=== PATIENT | female | born 1950 | race American Indian/Alaskan Native ===

== ENCOUNTER 2020-06-27 07:05 | Day surgery (SDC) | payer OTHER ==
[~2020-06-27] VITALS: Ht 162.6 cm; Wt 96.2 kg
[~2020-06-27 07:05] MED LIST: ATOR20 PO; BIOTIN5000 MCG PO; CEPH500 PO; DIOVAN PO; EUTHYROX125 MCG PO; GABA300; HCTZ PO; LEVSOD112; LEVSOD112 PO; METPRE4DP PO; NABU750; OLMESARTAN MEDO20 MG PO; Percocet 5-3251 EACH PO; Robaxin500 MG PO; VALS80 PO
--- NOTE | 2020-06-27 07:46 | NUR ---
Ambulatory in Day Surgery Patient states colon prep results clear. History, Chart, Medications and Allergies reviewed before start of procedure. Lungs clear T/O to Auscultation. Patient confirms NPO status and agrees with scheduled surgery. Pre-Op teaching done. Pt verbalizes understanding.
--- NOTE | 2020-06-27 08:09 | NUR ---
06/27/20 0809 Kalee Cueva HISTORY,CHART, MEDICATIONS AND ALLERGIES REVIEWED BEFORE START OF PROCEDURE. PATIENT CONFIRMS NPO STATUS AND AGREES WITH SCHEDULED PROCEDURE. 3-LEAD EKG REVIEWED WITH PHYSICIAN PRIOR TO START OF PROCEDURE. MONITOR INTACT WITH CONTINUOUS PULSE OXIMETRY AND INTERMITTENT BP. SUPPLEMENTAL O2 TO BE TITRATED THROUGHOUT PROCEDURE TO MAINTAIN O2 SATURATION ABOVE 90%. PATIENT DETERMINED TO BE ASA APPROPRIATE FOR MODERATE SEDATION PRIOR TO START OF PROCEDURE BY .
--- NOTE | 2020-06-27 08:54 | NUR ---
PATIENT DROWSY BUT ORIENTED. DR. RANDOLPH SPOKE WITH PATIENT ABOUT SCOPE RESULTS. FOLLOW UP IN THREE YEARS, FOLLOW UP APPOINTMENT NOT NEEDED.
--- NOTE | 2020-06-27 09:13 | NUR ---
RESUMED CARE OF PATIENT FROM TIO HUANG RN. PATIENT APPEARS ASLEEP WITH EYES CLOSED, RESP. EVEN AND UNLABORED. BIOXC 94% RA.
--- NOTE | 2020-06-27 09:35 | NUR ---
Discharge instructions reviewed with patient. Patient verbalizes understanding. Copy given to patient to take home. Patient States Post-Procedure ride home has been arranged with her .
--- NOTE | 2020-06-27 09:50 | NUR ---
0945- UP TO DRESS WITH A STEADY GAIT. TOLERATING PO FLUID. VSS. NO C/O.
== END 2020-06-27 09:50 | disposition home or self-care (01) ==
LOC: ORSCMMR 07:05 → ORD 08:00 → ORSCMMR 08:00
PROVIDERS: Internal Medicine Gastroenterology
PROC: 0DBK8ZX Excision of Ascending Colon, Via Natural or Artificial Opening Endoscopic, Diagnostic (ICD-10-PCS; principal; 2020-06-27 08:00)
PROC: 0DBC8ZX Excision of Ileocecal Valve, Via Natural or Artificial Opening Endoscopic, Diagnostic (ICD-10-PCS; principal; 2020-06-27 08:00)
PROC: 0DBL8ZX Excision of Transverse Colon, Via Natural or Artificial Opening Endoscopic, Diagnostic (ICD-10-PCS; principal; 2020-06-27 08:00)
PROC: 0DBH8ZX Excision of Cecum, Via Natural or Artificial Opening Endoscopic, Diagnostic (ICD-10-PCS; principal; 2020-06-27 08:00)
DX: Z12.11 Encounter for screening for malignant neoplasm of colon (principal); Z86.010 Personal history of colon polyps; D12.2 Benign neoplasm of ascending colon; D12.3 Benign neoplasm of transverse colon; D12.0 Benign neoplasm of cecum; K57.30 Diverticulosis of large intestine without perforation or abscess without bleeding; I10 Essential (primary) hypertension; E03.9 Hypothyroidism, unspecified; G47.33 Obstructive sleep apnea (adult) (pediatric); Z79.899 Other long term (current) drug therapy
CPT/HCPCS: 88305; J2250; J3010; J7120

== ENCOUNTER 2023-08-03 06:26 | Day surgery (SDC) | payer OTHER ==
[~2023-08-03] VITALS: Ht 162.6 cm; Wt 107.5 kg
[~2023-08-03 06:26] MED LIST changes: +Lactated Ringer's 1,000 ML IV SCH
[2023-08-03 06:50] VITALS: BP 154/72
[2023-08-03] MEDS ORDERED: FURO40 PO (07:03)
[2023-08-03] MEDS ORDERED: propofoL 50 ML IV ONE (07:24)
--- NOTE | 2023-08-03 07:34 | NUR ---
Patient confirms NPO status and agrees with scheduled surgery. Ambulatory in Day SurgeryPre-Op teaching done. Pt verbalizes understanding. History, Chart, Medications and Allergies reviewed before start of procedure.Patient States Post-Procedure ride home has been arranged.
--- NOTE | 2023-08-03 07:38 | NUR ---
08/03/23 0738 Esthela Jewell MONITOR INTACT WITH CONTINUOUS PULSE OXIMETRY, CONTINUOUS END TITAL CO2, AND INTERMITTENT BLOOD PRESSURE. 3-LEAD EKG REVIEWED WITH PHYSICIAN PRIOR TO START OF PROCEDURE. O2 VIA N/C INTACT THROUGHOUT SEDATION/PROCEDURE. See Anesthesia record FOR DETAILS.
[2023-08-03 08:07] VITALS: BP 139/79
--- NOTE | 2023-08-03 08:08 | NUR ---
REPORT RECEIVED FROM PRANAY BELLE. VSS. PT ON RA. PT A&OX4. PT ABLE TO REPOSITION SELF IN BED. PT REQUESTING PO FLUIDS AND TOLERATING THEM WELL. PT DENIES PAIN, NAUSEA OR OTHER DISCOMFORTS.
[2023-08-03 08:15] VITALS: BP 110/76
[2023-08-03 08:25] VITALS: BP 123/79
== END 2023-08-03 08:34 | disposition home or self-care (01) ==
LOC: ORSCMMR 06:26 → ORD 07:30 → ORSCMMR 07:30
PROVIDERS: Internal Medicine Gastroenterology
PROC: 0DBH8ZX Excision of Cecum, Via Natural or Artificial Opening Endoscopic, Diagnostic (ICD-10-PCS; principal; 2023-08-03 07:30)
PROC: 0DBK8ZX Excision of Ascending Colon, Via Natural or Artificial Opening Endoscopic, Diagnostic (ICD-10-PCS; principal; 2023-08-03 07:30)
PROC: 0DBM8ZX Excision of Descending Colon, Via Natural or Artificial Opening Endoscopic, Diagnostic (ICD-10-PCS; principal; 2023-08-03 07:30)
DX: Z12.11 Encounter for screening for malignant neoplasm of colon (principal); D12.0 Benign neoplasm of cecum; D12.2 Benign neoplasm of ascending colon; D12.4 Benign neoplasm of descending colon; I10 Essential (primary) hypertension; G47.33 Obstructive sleep apnea (adult) (pediatric); Z79.899 Other long term (current) drug therapy; E66.01 Morbid (severe) obesity due to excess calories; Z68.41 Body mass index [BMI] 40.0-44.9, adult; E03.9 Hypothyroidism, unspecified
CPT/HCPCS: 88305; J2704; J7120